=== PATIENT | female | born 1995 | race Two or more races ===

== ENCOUNTER 2021-10-13 11:24 | Emergency (ER) | payer BC ==
[~2021-10-13] VITALS: Ht 165.1 cm; Wt 104.0 kg
[2021-10-13 11:37] VITALS: BP 117/76
[2021-10-13] MEDS ORDERED: BENZ-38 PO (13:05)
[2021-10-13] MEDS ORDERED: ALBU18HF2 INH ×2 (13:05→16:42)
[2021-10-13] MEDS ORDERED: BENZ-49 PO (16:42)
== END 2021-10-13 14:23 | disposition home or self-care (01) ==
LOC: ER 11:25
DX: R05.9 Cough, unspecified (principal); J02.9 Acute pharyngitis, unspecified
CPT/HCPCS: 71045; 99283